=== PATIENT | female | born 1935 | race Caucasian/White ===

== ENCOUNTER 2018-10-06 10:26 | Observation (INO) ==
[2018-10-06] MEDS ORDERED: ASPIRIN 81 MG TAB.CHEW CHEWED ONE (10:31)
[2018-10-06] MEDS ORDERED: methylPREDNISolone SOD SUCC 125 MG/2 ML VIAL IV ONE (10:34)
--- NOTE | 2018-10-06 10:36 | Emergency Department Note ---
SOB HPI - General Chief Complaint: Shortness of Breath/Dyspnea Stated Complaint: SOB, UTI symptoms. Time Seen by Provider: 10/06/18 10:31 Source: patient Mode of arrival: ambulatory Limitations: no limitations - History of Present Illness This patient has a history of COPD and is has some right upper quadrant right lower chest discomfort. Having increasing shortness of breath and wheezing for the last week or 2. Also has a cough productive of white phlegm. - Related Data Home Medications Medication Instructions Recorded Confirmed atorvastatin 20 mg tablet 20 mg PO QDAY 07/31/17 10/06/18 cholecalciferol (vitamin D3) 2,000 5,000 unit PO QDAY cap 07/31/17 10/06/18 unit capsule furosemide 20 mg tablet 20 mg PO QDAY 07/31/17 10/06/18 ipratropium 20 mcg-albuterol 100 1 puff INHALATION .Q4-6H PRN g 07/31/17 10/06/18 mcg/actuation mist for inhalation losartan 50 mg tablet 100 mg PO QDAY 07/31/17 10/06/18 metformin ER 500 mg 500 mg PO QDAY 07/31/17 10/06/18 tablet,extended release 24 hr polysaccharide iron complex 150 mg 150 mg PO BID cap 07/31/17 10/06/18 iron capsule vit C-vit N-[id number]-hes-om-3 1 tab PO QDAY 07/31/17 10/06/18 tramadol 50 mg tablet 25 mg PO Q12H PRN tab 08/21/17 10/06/18 albuterol sulfate HFA 90 2 puff INHALATION Q6H PRN 11/27/17 10/06/18 mcg/actuation aerosol inhaler ranitidine 300 mg tablet 300 mg PO BID tab 06/25/18 10/06/18 Methimazole [Tapazole] 10 mg PO BID 10/06/18 10/06/18 Allergies Allergy/AdvReac Type Severity Reaction Status Date / Time bacitracin Allergy Severe Swelling Verified 02/16/18 09:08 [From Neosporin ([id number])] Neomycin Allergy Severe Swelling Verified 02/16/18 09:08 [From Neosporin ([id number])] polymyxin B Allergy Severe Swelling Verified 02/16/18 09:08 [From Neosporin ([id number])] Procaine [From Novocain] Allergy Severe Swelling Verified 02/16/18 09:08 Review of Systems All systems ED: reviewed and negative except as stated. Past Medical History - Past Medical History [facility] Narrative: Medical History (Last Reviewed 06/25/18 @ 13:44 by GEORGIA Colmenares) History of tobacco abuse (Chronic) Hypoxemia (Chronic) Chronic respiratory failure (Chronic) Hay fever (Chronic) Multiple allergies (Chronic) Osteoporosis (Chronic) Arthritis (Chronic) IBS (irritable bowel syndrome) (Chronic) Hypertension (Chronic) Heart palpitations (Chronic) Shortness of breath (Chronic) Oxygen dependent (Chronic) snf use of drug (Chronic) Chronic neck pain (Chronic) Right knee pain (Chronic) Atopic dermatitis (Chronic) Constipation (Chronic) Vitamin B12 deficiency (Chronic) Polymyalgia rheumatica (Chronic) Anemia of chronic disease (Chronic) Chronic lumbar pain (Chronic) Acute bronchitis (Chronic) Chronic renal disease (Chronic) Pneumonia (Chronic) Chronic obstructive pulmonary disease (Chronic) H/O post-polio syndrome (Chronic) History of hysterectomy (Chronic) Past Surgical History (Last Reviewed 06/25/18 @ 13:44 by GEORGIA Colmenares) History of colonoscopy with polypectomy (Chronic) History of hemorrhoidectomy (Chronic) History of tonsillectomy (Chronic ~1944) Family History (Last Reviewed 06/25/18 @ 13:44 by GEORGIA Colmenares) Mother Stroke Hypertension Arthritis Heart disease Father Stomach cancer Grandmother Stroke Hypertension - Social History smoking status: Former smoker Physical Exam Limitations: no limitations General appearance: alert Head: atraumatic Eye: Present: normal appearance ENT: normal exam Neck: Present: normal inspection Chest: Present: normal inspection Respiratory: Present: wheezes Cardiovascular: Present: regular rate, normal rhythm, normal heart sounds Abdominal: Present: soft, tenderness. Absent: distention, guarding, rebound Abdominal tenderness: Present: RUQ, mild Neurological: Present: alert Psychiatric: Present: normal affect Skin: Present: warm, dry Course Vital Signs Pulse Rate 127 H 10/06/18 10:26 Respiratory Rate 28 H 10/06/18 10:26 Blood Pressure 164/94 10/06/18 10:26 Pulse Oximetry (%) 95 10/06/18 10:26 Pulse Rate 105 H 10/06/18 13:08 Respiratory Rate 22 22/19 13:08 Blood Pressure 110/54 10/06/18 13:08 Pulse Oximetry (%) 96 10/06/18 13:08 Shortness of Breath/Dyspnea - [facility] Narrative Medical decision making narrative: This patient was treated with a DuoNeb twice given Solu-Medrol and Zithromax and still does not feel good enough to go home. Her peak flow was only 65. She will be admitted by Dr. Funk. - Lab Data Lab results reviewed: Yes I reviewed the patient's lab results. Result diagrams: 10/06/18 10:42 10/06/18 10:42 Lab Results 10/06/18 10/06/18 10/06/18 Range/Units 10:42 10:42 10:42 WBC 6.9 (4.5-11.0) K/mcL RBC 4.24 (4.00-5.20) M/mcL Hgb 11.9 L (12.0-15.0) g/dL Hct 36.4 (36.0-48.0) % MCV 85.8 (80.0-100.0) fL MCH 28.1 (26.0-34.0) pg MCHC 32.8 (31.0-36.0) g/dL RDW 13.6 (11.5-14.5) % Plt Count 213 (140-440) K/mcL MPV 9.0 (7.4-10.4) fL Gran % 74.2 (38.0-78.0) % Lymph % (Auto) 13.6 L (15.5-49.0) % [place] % (Auto) 11.3 (1.0-12.0) % Eos % (Auto) 0.8 (0.0-7.0) % Baso % (Auto) 0.1 (0.0-2.0) % Gran # 5.1 (1.8-8.0) K/mcL Lymph # (Auto) 0.9 L (1.5-4.8) K/mcL [place] # (Auto) 0.8 (0.1-0.9) K/mcL Eos # (Auto) 0.1 (0.0-0.7) K/mcL Baso # (Auto) 0 (0.0-0.3) K/mcL VBG Lactic Acid (0.5-2.0) mmol/L Sodium 138 (133-145) mmol/L Potassium 4.6 (3.3-5.1) mmol/L Chloride 100 (96-108) mmol/L Carbon Dioxide 22 (22-30) mmol/L Anion Gap 16.0 (8-16) BUN 23 (8-23) mg/dl Creatinine 1.1 (0.6-1.1) mg/dl GFR Calculation 47 Glucose 149 H (70-105) mg/dL Calcium 9.1 (8.6-10.4) mg/dl Total Bilirubin 0.2 (0.0-1.0) mg/dL AST 22 (0-37) U/l ALT 15 (0-40) U/l Alkaline Phosphatase 81 (39-117) U/L Total Creatine Kinase 53 (24-170) IU/L CK-MB (CK-2) 2.4 (0-2.9) ng/ml Myoglobin 90 H (25-58) ng/ml Troponin T < 0.01 (0-0.03) ng/ml NT-Pro-B Natriuret Pep 316.4 (0-450) pg/ml Total Protein 7.2 (5.9-8.4) gm/dL Albumin 4.2 (3.2-5.2) gm/dL Globulin 3.0 (2.2-3.7) gm/dL Albumin/Globulin Ratio 1.4 (1.0-2.3) 10/06/18 Range/Units 10:43 WBC (4.5-11.0) K/mcL RBC (4.00-5.20) M/mcL Hgb (12.0-15.0) g/dL Hct (36.0-48.0) % MCV (80.0-100.0) fL MCH (26.0-34.0) pg MCHC (31.0-36.0) g/dL RDW (11.5-14.5) % Plt Count (140-440) K/mcL MPV (7.4-10.4) fL Gran % (38.0-78.0) % Lymph % (Auto) (15.5-49.0) % [place] % (Auto) (1.0-12.0) % Eos % (Auto) (0.0-7.0) % Baso % (Auto) (0.0-2.0) % Gran # (1.8-8.0) K/mcL Lymph # (Auto) (1.5-4.8) K/mcL [place] # (Auto) (0.1-0.9) K/mcL Eos # (Auto) (0.0-0.7) K/mcL Baso # (Auto) (0.0-0.3) K/mcL VBG Lactic Acid 2.4 H (0.5-2.0) mmol/L Sodium (133-145) mmol/L Potassium (3.3-5.1) mmol/L Chloride (96-108) mmol/L Carbon Dioxide (22-30) mmol/L Anion Gap (8-16) BUN (8-23) mg/dl Creatinine (0.6-1.1) mg/dl GFR Calculation Glucose (70-105) mg/dL Calcium (8.6-10.4) mg/dl Total Bilirubin (0.0-1.0) mg/dL AST (0-37) U/l ALT (0-40) U/l Alkaline Phosphatase (39-117) U/L Total Creatine Kinase (24-170) IU/L CK-MB (CK-2) (0-2.9) ng/ml Myoglobin (25-58) ng/ml Troponin T (0-0.03) ng/ml NT-Pro-B Natriuret Pep (0-450) pg/ml Total Protein (5.9-8.4) gm/dL Albumin (3.2-5.2) gm/dL Globulin (2.2-3.7) gm/dL Albumin/Globulin Ratio (1.0-2.3) - Radiology Data Radiology results reviewed: Yes I reviewed the patient's radiology results. Disposition Pt seen by EARLY CHILDHOOD WORKER/PA only: No Clinical Impression: Acute exacerbation of chronic obstructive airways disease Disposition: Xfer As Outpt/Obs ([facility]) Condition: Fair Referrals: Kev Chavez MD [Physician] - Time of Disposition: 13:25
[2018-10-06] MEDS ORDERED: IPRATROPIUM/ALBUTEROL 3 ML AMPUL.NEB NEB ONE ×3 (10:41→13:44)
--- NOTE | 2018-10-06 11:20 | XRay Report ---
CLINICAL INFORMATION: COPD cough and chest pain COMPARISON: 04/26/2018 FINDINGS: Heart size, mediastinum and pulmonary vessels are normal. COPD changes noted - no infiltrates or new pulmonary abnormalities. No effusions IMPRESSION: Stable COPD Interpreted and Authenticated by: Javier Gunderson 10/06/18
[2018-10-06 11:25] LABS: Basophils # (Auto) 0 K/mcL (0.0-0.3); Basophils % (Auto) 0.1 % (0.0-2.0); Eosinophils # (Auto) 0.1 K/mcL (0.0-0.7); Eosinophils % (Auto) 0.8 % (0.0-7.0); Granulocytes % (Auto) 74.2 % (38.0-78.0); Hematocrit 36.4 % (36.0-48.0); Hemoglobin 11.9 g/dL (12.0-15.0); Lymphocytes # (Auto) 0.9 K/mcL (1.5-4.8); Lymphocytes % (Auto) 13.6 % (15.5-49.0); Mean Cell Volume 85.8 fL (80.0-100.0); Mean Corpuscular HGB Conc 32.8 g/dL (31.0-36.0); Monocytes # (Auto) 0.8 K/mcL (0.1-0.9); Monocytes % (Auto) 11.3 % (1.0-12.0); Platelet Count 213 K/mcL (140-440); RBC 4.24 M/mcL (4.00-5.20); Red Cell Distribution Width 13.6 % (11.5-14.5); WBC 6.9 K/mcL (4.5-11.0)
[2018-10-06 11:50] LABS: ALT/SGPT 15 U/l (0-40); AST/SGOT 22 U/l (0-37); Albumin 4.2 gm/dL (3.2-5.2); Albumin/Globulin Ratio 1.4 (1.0-2.3); Alkaline Phosphatase 81 U/L (39-117); Bilirubin,Total 0.2 mg/dL (0.0-1.0); Blood Urea Nitrogen 23 mg/dl (8-23); Calcium 9.1 mg/dl (8.6-10.4); Carbon Dioxide 22 mmol/L (22-30); Chloride 100 mmol/L (96-108); Creatine Kinase 53 IU/L (24-170); Creatine Kinase MB 2.4 ng/ml (0-2.9); Glomerular Filtration Rate 47; Glucose 149 mg/dL (70-105); Myoglobin 90 ng/ml (25-58); Potassium 4.6 mmol/L (3.3-5.1); Sodium 138 mmol/L (133-145); proBNP 316.4 pg/ml (0-450)
[2018-10-06] MEDS ORDERED: AZITHROMYCIN 500 MG in DEXTROSE 5% IN WATER 250 ML IV ONE (11:54)
--- NOTE | 2018-10-06 13:43 | Internal Med History&Physical ---
Medical - H&P: HPI Patient information: Note initiated : 10/06/18 at 1:38 pm Service Date, if different from initiated Date: [] Patient: Doris Li a 82 y/o F admitted on for SOB, UTI Symptoms. Chief Complaint: [] History of present illness: Ms. Cristofer Richard is a 82 year old F with history of hypertension presents to the emergency room today for evaluation of cough and shortness of breath. The patient has recently been diagnosed with hyperthyroidism and started on methimazole I believe 2 weeks ago. The patient notes that approximately since then she has noticed that she has progressively been more short of breath, she has had some cough dry sputum and weakness. She also noticed that she has increased tremors fatigue palpitations and jitteriness. She believes that her tremors palpitations could be related to the methimazole. She however also has flareup of her COPD every spring. The patient notes that her shortness of breath has progressively gotten worse, to a point which she is unable to carry out her activities of daily living. She therefore presented to the emergency room. On presentation to the emergency room patient was afebrile tachycardic respiratory rate around 25-35, blood pressure 130 x 51 she is on 95% on 3 L of oxygen. She has COPD with home oxygen use of 2 to 3 L. WBC count is 6.9 hemoglobin 11.9 platelets 213 chemistries unremarkable lactic acid slightly elevated 2.4 chest x-ray is negative for an acute pneumonia. 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) Medical - H&P: PMH Medical history: Medical History (Last Reviewed 06/25/18 @ 13:44 by GEORGIA Colmenares) History of tobacco abuse (Chronic) Hypoxemia (Chronic) Chronic respiratory failure (Chronic) Hay fever (Chronic) Multiple allergies (Chronic) Osteoporosis (Chronic) Arthritis (Chronic) IBS (irritable bowel syndrome) (Chronic) Hypertension (Chronic) Heart palpitations (Chronic) Shortness of breath (Chronic) Oxygen dependent (Chronic) 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) Chronic neck pain (Chronic) Right knee pain (Chronic) Atopic dermatitis (Chronic) Constipation (Chronic) Vitamin B12 deficiency (Chronic) Polymyalgia rheumatica (Chronic) Anemia of chronic disease (Chronic) Chronic lumbar pain (Chronic) Acute bronchitis (Chronic) Chronic renal disease (Chronic) Pneumonia (Chronic) Chronic obstructive pulmonary disease (Chronic) H/O post-polio syndrome (Chronic) History of hysterectomy (Chronic) Surgical history: Past Surgical History (Last Reviewed 06/25/18 @ 13:44 by GEORGIA Colmenares) History of colonoscopy with polypectomy (Chronic) History of hemorrhoidectomy (Chronic) History of tonsillectomy (Chronic ~194) Pertinent family history: Family History (Last Reviewed 06/25/18 @ 13:44 by GEORGIA Colmenares) Mother Stroke Hypertension Arthritis Heart disease Father Stomach cancer Grandmother Stroke Hypertension Medical - H&P: Meds Home Medications Medication Instructions Recorded Confirmed Type atorvastatin 20 mg tablet 20 mg PO QDAY 07/31/17 10/06/18 History cholecalciferol (vitamin D3) 2,000 5,000 unit PO QDAY cap 07/31/17 10/06/18 History unit capsule furosemide 20 mg tablet 20 mg PO QDAY 07/31/17 10/06/18 History ipratropium 20 mcg-albuterol 100 1 puff INHALATION .Q4-6H PRN g 07/31/17 10/06/18 History mcg/actuation mist for inhalation losartan 50 mg tablet 100 mg PO QDAY 07/31/17 10/06/18 History metformin ER 500 mg 500 mg PO QDAY 07/31/17 10/06/18 History tablet,extended release 24 hr polysaccharide iron complex 150 mg 150 mg PO BID cap 07/31/17 10/06/18 History iron capsule vit C-vit B-honkul-jrq-om-3 1 tab PO QDAY 07/31/17 10/06/18 History tramadol 50 mg tablet 25 mg PO Q12H PRN tab 08/21/17 10/06/18 History albuterol sulfate HFA 90 2 puff INHALATION Q6H PRN 11/27/17 10/06/18 History mcg/actuation aerosol inhaler ranitidine 300 mg tablet 300 mg PO BID tab 06/25/18 10/06/18 History Methimazole [Tapazole] 10 mg PO BID 10/06/18 10/06/18 History Allergies Allergy/AdvReac Type Severity Reaction Status Date / Time bacitracin Allergy Severe Swelling Verified 02/16/18 09:08 [From Neosporin ([id number])] Neomycin Allergy Severe Swelling Verified 02/16/18 09:08 [From Neosporin (cli-ylr-nsyix)] polymyxin B Allergy Severe Swelling Verified 02/16/18 09:08 [From Neosporin ([id number])] Procaine [From Novocain] Allergy Severe Swelling Verified 02/16/18 09:08 Medical - H&P: Exam - Constitutional Vitals: Pulse Resp BP Pulse Ox 105 H 22 110/54 96 10/06/18 13:08 10/06/18 13:08 10/06/18 13:08 10/06/18 13:08 Exam: GENERAL: The patient is a well-developed, well-nourished in no apparent distress. Is alert and oriented x3. VITAL SIGNS: Reviewed and as noted elsewhere. HEENT: Head is normocephalic and atraumatic. Extraocular muscles are intact. Pupils are equal, round, and reactive to light. Nares appeared normal. Mouth appears any without lesions. Mucous membranes are moist. NECK: Normal to inspection, Supple, No lymphadenopathy or thyromegaly. LUNGS: Air entry equal on both sides, air entry reduced bilaterally, bilateral expiratory wheezing present bibasilar mild crackles. No accessory muscle use but the patient does appear tachypneic. Patient is able to speak full sentences HEART: Regular tachycardic rate and rhythm normal, S1 and S2 heard, no Gallop, S3 or Rub Noted, No Gross murmur heard. ABDOMEN: Soft, nontender, and nondistended. Positive bowel sounds. No hepatosplenomegaly was noted. EXTREMITIES: No cyanosis, clubbing, rash, lesions or edema. NEUROLOGIC: Cranial nerves II through XII are grossly intact. Motor and Sensory System Grossly Intact PSYCHIATRIC: Normal affect, Normal Mood. Appropriate Behavior. SKIN: No ulceration or wounds noted, No jaundice, No rash noted. Medical - H&P: Reslt - Labs CBC & Chem 7: 10/06/18 10:42 10/06/18 10:42 Labs: Short CBC 10/06/18 Range/Units 10:42 WBC 6.9 (4.5-11.0) K/mcL Hgb 11.9 L (12.0-15.0) g/dL Hct 36.4 (36.0-48.0) % Plt Count 213 (140-440) K/mcL BMP 10/06/18 10:42 Sodium 138 Potassium 4.6 Chloride 100 Carbon Dioxide 22 BUN 23 Creatinine 1.1 Glucose 149 H Calcium 9.1 Cardiac Enzymes 10/06/18 10/06/18 Range/Units 10:42 10:42 Total Creatine Kinase 53 (24-170) IU/L CK-MB (CK-2) 2.4 (0-2.9) ng/ml Troponin T < 0.01 (0-0.03) ng/ml Liver Function 10/06/18 Range/Units 10:42 Total Bilirubin 0.2 (0.0-1.0) mg/dL AST 22 (0-37) U/l ALT 15 (0-40) U/l Alkaline Phosphatase 81 (39-117) U/L Albumin 4.2 (3.2-5.2) gm/dL Medical - H&P: A/P - Narrative A/P Narrative: A/P Acute exacerbation of COPD Hyperthyroidism HYpertensino Hyperlipidemia Chr back pain Allergies Chronic respiratory failure Plan Admit to tele Steroids duo nebs and azithromycin for COPD exacerbation Oxygen supplementation to keep oxygen saturation more than 90 Resume home medications as appropriate Start the patient on atenolol to help counter adrenergic side effects of hyperthyroidism Resume methimazole Check T3-T4 and TSH DVT heparin subcu Cardiac diet Full code, patient notes that her youngest son will make the decision to pull the plug around 48 hours if she remains on a ventilator Social History - Social History occupational status: retired other: Children-6, Grandchildren-15 - Exercise physical activity: none - Tobacco smoking status: Former smoker - Quit Details quit date: 05/18/14 pack-years: 64 - Alcohol alcohol intake frequency: does not drink - Substance use substance use type: does not use - Safety seatbelt use: always
[2018-10-06 14:35] LABS: Appearance,Urine CLEAR; Bacteria,Urine 0 /hpf (0); Bilirubin,Urine NEG (NEG); Color,Urine STRAW; Culture Indicated,Urine NO; Glucose,Urine (UA) NEGATIVE (NEG); Ketones,Urine NEG (NEG); Leukocyte Esterase,Urine NEG /uL (NEG); Mucus,Urine FEW /hpf (0); Nitrate,Urine NEG (NEG); Protein,Urine NEG (NEG); Specific Gravity,Urine 1.006 (1.000-1.035); Urine Blood NEG mg/dL (<0.03); Urine RBC < 1 /hpf (0-1); Urine Squamous Epithelial Cell < 1 /hpf (0-4); Urine WBC < 1 /hpf (0-4); Urobilinogen,Urine NEG (NEG)
[2018-10-06 14:37] LABS: Free T3 3.5 pg/ml (2.0-4.4); Free T4 (Free Thyroxine) 2.45 ng/dl (0.7-1.7); Thyroid Stimulating Hormone 0.01 uIU/ml (0.27-5.01)
[2018-10-06] MEDS ORDERED: NALOXONE HCL 0.4 MG/ML VIAL IV PRN (14:54)
[2018-10-06] MEDS ORDERED: ONDANSETRON 4 MG/2 ML VIAL IV PRN (14:54)
[2018-10-06] MEDS ORDERED: traMADol 50 MG TABLET PO PRN (14:54)
[2018-10-06] MEDS ORDERED: ACETAMINOPHEN 325 MG TABLET PO PRN (14:54)
[2018-10-06] MEDS: IPRATROPIUM/ALBUTEROL 3 ML AMPUL.NEB NEB SCH ×3 (15:23→22:23)
[2018-10-06] MEDS: 0.9 % SODIUM CHLORIDE 10 ML SYRINGE IV SCH ×2 (15:44→20:30)
[2018-10-06] MEDS ORDERED: guaiFENesin/CODEINE 10 ML UDC PO PRN (19:08)
[2018-10-06] MEDS ORDERED: METHIMAZOLE 10 MG TABLET PO SCH (21:00)
[2018-10-06] MEDS ORDERED: HEPARIN 5,000 UNIT/ML VIAL SQ SCH (21:00)
[2018-10-06] MEDS ORDERED: IRON POLYSACCHARIDE COMPLEX 150 MG CAPSULE PO SCH (21:00)
[2018-10-07] MEDS: IPRATROPIUM/ALBUTEROL 3 ML AMPUL.NEB NEB SCH ×6 (03:14→23:17)
[2018-10-07] MEDS: 0.9 % SODIUM CHLORIDE 10 ML SYRINGE IV SCH ×3 (05:29→22:17)
[2018-10-07 05:33] LABS: Basophils # (Auto) 0 K/mcL (0.0-0.3); Basophils % (Auto) 0.3 % (0.0-2.0); Eosinophils # (Auto) 0 K/mcL (0.0-0.7); Eosinophils % (Auto) 0 % (0.0-7.0); Granulocytes % (Auto) 68.1 % (38.0-78.0); Hematocrit 30.6 % (36.0-48.0); Hemoglobin 10.1 g/dL (12.0-15.0); Lymphocytes # (Auto) 0.8 K/mcL (1.5-4.8); Lymphocytes % (Auto) 18.4 % (15.5-49.0); Mean Cell Volume 85.8 fL (80.0-100.0); Mean Corpuscular HGB Conc 32.9 g/dL (31.0-36.0); Mean Platelet Volume 9.1 fL (7.4-10.4); Monocytes # (Auto) 0.6 K/mcL (0.1-0.9); Monocytes % (Auto) 13.2 % (1.0-12.0); Platelet Count 189 K/mcL (140-440); RBC 3.56 M/mcL (4.00-5.20); Red Cell Distribution Width 13.5 % (11.5-14.5); WBC 4.3 K/mcL (4.5-11.0)
[2018-10-07 05:41] LABS: ALT/SGPT 12 U/l (0-40); AST/SGOT 17 U/l (0-37); Albumin 3.5 gm/dL (3.2-5.2); Albumin/Globulin Ratio 1.3 (1.0-2.3); Alkaline Phosphatase 66 U/L (39-117); Bilirubin,Direct < 0.2 mg/dL (0.0-0.3); Bilirubin,Total 0.2 mg/dL (0.0-1.0); Blood Urea Nitrogen 27 mg/dl (8-23); Calcium 8.4 mg/dl (8.6-10.4); Carbon Dioxide 23 mmol/L (22-30); Chloride 100 mmol/L (96-108); Gamma Glutamyl Transpeptidase 19 U/L (5-36); Globulin 2.7 gm/dL (2.2-3.7); Glomerular Filtration Rate 60; Glucose 140 mg/dL (70-105); Lactate Dehydrogenase 202 U/L (94-250); Magnesium 2.4 mg/dL (1.6-2.5); Phosphorous 3.6 mg/dL (2.7-4.5); Potassium 4.6 mmol/L (3.3-5.1); Sodium 134 mmol/L (133-145); Triglycerides 82 mg/dl (<150)
[2018-10-07] MEDS ORDERED: PANTOPRAZOLE 40 MG TABLET PO SCH (07:30)
[2018-10-07] MEDS ORDERED: predniSONE 20 MG TABLET PO SCH (08:00)
--- NOTE | 2018-10-07 08:22 | Internal Med Progress Note ---
Medical - PN: Subj Patient information: Note initiated : 10/07/18 at 8:20 am Service Date, if different from initiated Date: [] Patient: Doris Li a 82 y/o F admitted on 10/06/18 for SOB, UTI Symptoms. Chief Complaint: [] Interval history: Ms. Cristofer Richard is a 82 year old F with history of hypertension presents to the emergency room today for evaluation of cough and shortness of breath. The patient has recently been diagnosed with hyperthyroidism and started on methimazole I believe 2 weeks ago. The patient notes that approximately since then she has noticed that she has progressively been more short of breath, she has had some cough dry sputum and weakness. She also noticed that she has i ncreased tremors fatigue palpitations and jitteriness. She believes that her tremors palpitations could be related to the methimazole. She however also has flareup of her COPD every spring. The patient notes that her shortness of breath has progressively gotten worse, to a point which she is unable to carry out her activities of daily living. She therefore presented to the emergency room. On presentation to the emergency room patient was afebrile tachycardic respiratory rate around 25-35, blood pressure 130 x 51 she is on 95% on 3 L of oxygen. She has COPD with home oxygen use of 2 to 3 L. WBC count is 6.9 hemoglobin 11.9 platelets 213 chemistries unremarkable lactic acid slightly elevated 2.4 chest x-ray is negative for an acute pneumonia. Patient received steroids and duo nebs in the ED however remained tachycardic and tachypneic and therefore is being admitted to the hospital for further management 10/07 Patient seen examined, much improved from yesterday sob improved but still not at baseline feels sob with activity labs stable viral panel positive for metapneumovirus. Pertinent ROS: Denies headache, dizziness Denies chest pain, palpitations improving cough and shortness of breath. Denies abdominal pain, nausea or vomiting. - Constitutional Vitals: Vital Signs Temp Pulse Resp BP Pulse Ox 98.6 F 101 H 26 H 154/64 100 10/07/18 08:00 10/07/18 07:27 10/07/18 08:00 10/07/18 08:00 10/07/18 08:00 Period Temp Pulse Resp BP Sys/Waterman Pulse Ox Last 24 Hr 97.1 F-98.6 F 94-130 16-35 110-167/51-94 95-100 Intake and Output 10/06/18 10/07/18 10/07/18 21:59 05:59 13:59 Intake Total 360 360 Output Total 400 250 Balance -40 110 Weight 136 lb 8 oz Intake & Output: Intake & Output 10/06/18 10/07/18 10/07/18 21:59 05:59 13:59 Intake Total 360 360 Output Total 400 250 Balance -40 110 Weight 136 lb 8 oz Intake: Oral 360 360 Output: Void Amount 400 250 Other: Meal Lunch Percent of Meal Consumed 75% Feeding Ability Assist with Tray Set Up Urine Appearance Clear Urine Color Bright Yellow Exam: Constitutional; Afebrile, cooperative, alert, not in distress. Respiratory system: Air Entry equal on both sides, mild exp wheeze, much improved from yesterday. CVS- Rate rhythm regular, S1,S2 heard, no gallop, no rub. 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 Medical - PN: Obj Da - Labs CBC & Chem 7: 10/07/18 03:40 10/07/18 03:40 Labs: Abnormal Lab Results 10/07/18 10/07/18 10/06/18 03:40 03:40 10:43 WBC 4.3 L RBC 3.56 L Hgb 10.1 L Hct 30.6 L Lymph % (Auto) [place] % (Auto) 13.2 H Lymph # (Auto) 0.8 L VBG Lactic Acid 2.4 H BUN 27 H Glucose 140 H Calcium 8.4 L Myoglobin TSH Free T4 10/06/18 10/06/18 10/06/18 10:42 10:42 10:42 WBC RBC Hgb 11.9 L Hct Lymph % (Auto) 13.6 L [place] % (Auto) Lymph # (Auto) 0.9 L VBG Lactic Acid BUN Glucose 149 H Calcium Myoglobin 90 H TSH 0.01 L Free T4 2.45 H Meds: Medications Acetaminophen (Tylenol) 650 mg PO Q6HP PRN PRN Reason: PAIN/FEVER > 101 Albuterol/Ipratropium (Duoneb) 3 ml NEB Q4HRT [facility] Last Admin: 10/07/18 07:27 Dose: 3 ml Documented by: Atenolol (Tenormin) 25 mg PO DAILY [facility] Atorvastatin Calcium (Lipitor) 20 mg PO QDAY [facility] Azithromycin (Zithromax) 250 mg PO DAILY [facility]; Protocol Stop: 10/10/18 09:01 Furosemide (Lasix) 20 mg PO QDAY [facility] Guaifenesin/Codeine Phosphate (Robitussin Ac) 5 ml PO Q4HP PRN PRN Reason: Cough Last Admin: 10/06/18 20:28 Dose: 5 ml Documented by: Heparin Sodium (Porcine) (Heparin) 5,000 unit SQ Q12 [facility] Last Admin: 10/06/18 20:28 Dose: 5,000 unit Documented by: Losartan Potassium (Cozaar) 100 mg PO QDAY [facility] Methimazole (Methimazole) 10 mg PO BID [facility] Last Admin: 10/06/18 20:30 Dose: Not Given Documented by: Naloxone HCl (Narcan) 0.1 mg IV Q2MIN PRN PRN Reason: Opiate Reversal Ondansetron HCl (Zofran) 4 mg IV Q4HP PRN PRN Reason: Nausea And Vomiting [facility]opraz[facility] Last Admin: 10/07/18 07:54 Dose: 40 mg Documented by: Polysaccharide Iron Complex (Ferrex 150) 150 mg PO BID [facility] Last Admin: 10/06/18 20:29 Dose: 150 mg Documented by: Prednisone (Prednisone) 40 mg PO [facility] Last Admin: 10/07/18 07:54 Dose: 40 mg Documented by: Sodium Chloride (Saline Flush) 10 ml IV Q8 [facility] Last Admin: 10/07/18 05:29 Dose: 10 ml Documented by: Tramadol HCl (Ultram) 25 mg PO Q12HP PRN PRN Reason: Pain Last Admin: 10/06/18 20:28 Dose: 25 mg Documented by: Medical - PN: A/P - Time Spent With Patient Total time spent is greater than 50% in coordination of care (as documented) at patient's floor/unit and/or counseling patient: - Narrative A/P Narrative: A/P Acute exacerbation of COPD Hyperthyroidism HYpertensino Hyperlipidemia Chr back pain Allergies Chronic respiratory failure Plan xfer to med surg Steroids duo nebs and azithromycin for COPD exacerbation, pt clinically improving. Oxygen supplementation to keep oxygen saturation more than 90, she is presently on 2 L oxygen Resume home medications as appropriate Start the patient on atenolol to help counter adrenergic side effects of hyperthyroidism Resume methimazole at home dose, further titration as outpatient. T4 is elevated and TSH is 0.05. DVT heparin subcu Cardiac diet Full code, patient notes that her youngest son will make the decision to pull the plug around 48 hours if she remains on a ventilator
[2018-10-07] MEDS ORDERED: NALOXONE HCL 0.4 MG/ML VIAL IV PRN (08:25)
[2018-10-07] MEDS ORDERED: traMADol 50 MG TABLET PO PRN (08:25)
[2018-10-07] MEDS ORDERED: ACETAMINOPHEN 325 MG TABLET PO PRN (08:25)
[2018-10-07] MEDS ORDERED: guaiFENesin/CODEINE 10 ML UDC PO PRN (08:25)
[2018-10-07] MEDS ORDERED: ONDANSETRON 4 MG/2 ML VIAL IV PRN (08:25)
[2018-10-07] MEDS ORDERED: ATENOLOL 50 MG TABLET PO SCH (09:00)
[2018-10-07] MEDS ORDERED: ATORVASTATIN 20 MG TABLET PO SCH ×2 (09:00→21:00)
[2018-10-07] MEDS ORDERED: AZITHROMYCIN 250 MG TABLET PO SCH (09:00)
[2018-10-07] MEDS ORDERED: FUROSEMIDE 20 MG TABLET PO SCH (09:00)
[2018-10-07] MEDS ORDERED: LOSARTAN 50 MG TABLET PO SCH (09:00)
[2018-10-07] MEDS: ATENOLOL 50 MG TABLET PO SCH (09:14)
[2018-10-07] MEDS: AZITHROMYCIN 250 MG TABLET PO SCH (09:14)
[2018-10-07] MEDS: LOSARTAN 50 MG TABLET PO SCH (09:14)
[2018-10-07] MEDS: IRON POLYSACCHARIDE COMPLEX 150 MG CAPSULE PO SCH ×2 (09:14→20:36)
[2018-10-07] MEDS: METHIMAZOLE 10 MG TABLET PO SCH ×2 (09:15→20:37)
[2018-10-07] MEDS: FUROSEMIDE 20 MG TABLET PO SCH (09:15)
[2018-10-07] MEDS: HEPARIN 5,000 UNIT/ML VIAL SQ SCH ×2 (09:15→20:36)
[2018-10-08] MEDS: IPRATROPIUM/ALBUTEROL 3 ML AMPUL.NEB NEB SCH ×3 (03:28→11:02)
[2018-10-08 06:32] LABS: Basophils # (Auto) 0 K/mcL (0.0-0.3); Basophils % (Auto) 0.1 % (0.0-2.0); Eosinophils # (Auto) 0 K/mcL (0.0-0.7); Eosinophils % (Auto) 0.2 % (0.0-7.0); Granulocytes % (Auto) 60.7 % (38.0-78.0); Hematocrit 29.4 % (36.0-48.0); Hemoglobin 9.6 g/dL (12.0-15.0); Lymphocytes % (Auto) 28.1 % (15.5-49.0); Mean Cell Volume 85.4 fL (80.0-100.0); Mean Corpuscular HGB Conc 32.7 g/dL (31.0-36.0); Mean Platelet Volume 9.5 fL (7.4-10.4); Monocytes # (Auto) 0.8 K/mcL (0.1-0.9); Monocytes % (Auto) 10.9 % (1.0-12.0); Platelet Count 187 K/mcL (140-440); RBC 3.45 M/mcL (4.00-5.20); Red Cell Distribution Width 13.4 % (11.5-14.5)
[2018-10-08] MEDS: 0.9 % SODIUM CHLORIDE 10 ML SYRINGE IV SCH ×2 (07:11→14:29)
[2018-10-08 07:13] LABS: ALT/SGPT 11 U/l (0-40); AST/SGOT 16 U/l (0-37); Albumin 3.4 gm/dL (3.2-5.2); Albumin/Globulin Ratio 1.4 (1.0-2.3); Alkaline Phosphatase 60 U/L (39-117); Bilirubin,Direct < 0.2 mg/dL (0.0-0.3); Bilirubin,Total 0.2 mg/dL (0.0-1.0); Blood Urea Nitrogen 33 mg/dl (8-23); Calcium 8.6 mg/dl (8.6-10.4); Carbon Dioxide 23 mmol/L (22-30); Chloride 103 mmol/L (96-108); Gamma Glutamyl Transpeptidase 20 U/L (5-36); Globulin 2.4 gm/dL (2.2-3.7); Glomerular Filtration Rate 47; Glucose 94 mg/dL (70-105); Lactate Dehydrogenase 200 U/L (94-250); Magnesium 2.5 mg/dL (1.6-2.5); Phosphorous 3.6 mg/dL (2.7-4.5); Potassium 4.1 mmol/L (3.3-5.1); Sodium 138 mmol/L (133-145); Triglycerides 142 mg/dl (<150)
[2018-10-08] MEDS ORDERED: PANTOPRAZOLE 40 MG TABLET PO SCH (07:30)
[2018-10-08] MEDS ORDERED: predniSONE 20 MG TABLET PO SCH (08:00)
[2018-10-08] MEDS: METHIMAZOLE 10 MG TABLET PO SCH (10:11)
[2018-10-08] MEDS: IRON POLYSACCHARIDE COMPLEX 150 MG CAPSULE PO SCH (10:11)
[2018-10-08] MEDS: FUROSEMIDE 20 MG TABLET PO SCH (10:11)
[2018-10-08] MEDS: AZITHROMYCIN 250 MG TABLET PO SCH (10:11)
[2018-10-08] MEDS: HEPARIN 5,000 UNIT/ML VIAL SQ SCH (10:14)
[2018-10-08] MEDS: ATENOLOL 50 MG TABLET PO SCH (12:10)
[2018-10-08] MEDS: LOSARTAN 50 MG TABLET PO SCH (12:10)
--- NOTE | 2018-10-08 13:12 | Discharge Summary ---
Medical - DS: Prov Patient information: Note initiated : 10/08/18 at 1:09 pm Service Date, if different from initiated Date: [] Patient: Doris Li 82 y/o F admitted on 10/06/18 for SOB, UTI Symptoms. Chief Complaint: [] Date of admission: 10/06/18 14:38 Discharge date: 10/08/18 Primary care physician: GEORGIA Martinez Consults: 10/06/18 Consult to Physician [CONS] Stat Comment: Consulting Provider: Yanci Funk Reason For Exam: Physician to Consult Medical - DS: Meds - Discharge Medications Prescriptions: Atenolol [Tenormin] 25 mg PO DAILY #30 tab Azithromycin [Zithromax] 250 mg PO DAILY #3 tab predniSONE [Prednisone] 40 [facility] [place] Active and Home Medications: Home Medications atorvastatin 20 mg tablet 20 mg PO QDAY 07/31/17 [History Confirmed 10/06/18 Last Taken Unknown] cholecalciferol (vitamin D3) 2,000 unit capsule 5,000 unit PO QDAY cap 07/31/17 [History Confirmed 10/06/18 Last Taken Unknown] furosemide 20 mg tablet 20 mg PO QDAY 07/31/17 [History Confirmed 10/06/18 Last Taken Unknown] ipratropium 20 mcg-albuterol 100 mcg/actuation mist for inhalation 1 puff INHALATION .Q4-6H PRN g 07/31/17 [History Confirmed 10/06/18 Last Taken Unknown] losartan 50 mg tablet 100 mg PO QDAY 07/31/17 [History Confirmed 10/06/18 Last Taken Unknown] metformin ER 500 mg tablet,extended release 24 hr 500 mg PO QDAY 07/31/17 [History Confirmed 10/06/18 Last Taken Unknown] polysaccharide iron complex 150 mg iron capsule 150 mg PO BID cap 07/31/17 [History Confirmed 10/06/18 Last Taken Unknown] vit C-vit [id number] 1 tab PO QDAY 07/31/17 [History Confirmed 10/06/18 Last Taken Unknown] tramadol 50 mg tablet 25 mg PO Q12H PRN tab 08/21/17 [History Confirmed 10/06/18 Last Taken Unknown] albuterol sulfate HFA 90 mcg/actuation aerosol inhaler 2 puff INHALATION Q6H PRN 11/27/17 [History Confirmed 10/06/18 Last Taken Unknown] ranitidine 300 mg tablet 300 mg PO BID tab 06/25/18 [History Confirmed 10/06/18 Last Taken Unknown] Methimazole [Tapazole] 10 mg PO BID 10/06/18 [History Confirmed 10/06/18 Last Taken Unknown] Atenolol [Tenormin] 25 mg PO DAILY #30 tab 10/08/18 [Rx Last Taken Unknown] Azithromycin [Zithromax] 250 mg PO DAILY #3 tab 10/08/18 [Rx Last Taken Unknown] predniSONE [Prednisone] 40 mg PO [facility] #10 tab 10/08/18 [Rx Last Taken Unknown] Medical - DS: Hosp Hospital course: Discharge diagnosis * Acute exacerbation of COPD clinically improved with management per guidelines on bronchodilators and steroids. Likely flare secondary to human metapneumovirus URI * Hypoxic respiratory failure secondary to above continue home oxygen/bronchodilators * History of hypertension continue medications, started on atenolol to counter adrenergic side effects of hyperthyroidism * Hypothyroidism-continue methimazole, follow PCP as outpatient Brief hospital course Ms. Cristofer Richard is a 82 year old F with history of hypertension presents to the emergency room today for evaluation of cough and shortness of breath. The patient has recently been diagnosed with hyperthyroidism and started on methimazole I believe 2 weeks ago. The patient notes that approximately since then she has noticed that she has progressively been more short of breath, she has had some cough dry sputum and weakness. She also noticed that she has increased tremors fatigue palpitations and jitteriness. She believes that her tremors palpitations could be related to the methimazole. She however also has flareup of her COPD every spring. The patient notes that her shortness of breath has progressively gotten worse, to a point which she is unable to carry out her activities of daily living. She therefore presented to the emergency room. On presentation to the emergency room patient was afebrile tachycardic respiratory rate around 25-35, blood pressure 130 x 51 she is on 95% on 3 L of oxygen. She has COPD with home oxygen use of 2 to 3 L. WBC count is 6.9 hemoglobin 11.9 platelets 213 chemistries unremarkable lactic acid slightly elevated 2.4 chest x-ray is negative for an acute pneumonia. Patient received steroids and duo nebs in the ED however remained tachycardic and tachypneic and therefore is being admitted to the hospital for further management 10/07 Patient seen examined, much improved from yesterday sob improved but still not at baseline feels sob with activity labs stable viral panel positive for metapneumovirus. 10/08- patient doing well. Feels close to baseline. Discharging on home oxygen/azithromycin in 5 days of steroids. Would require outpatient follow-up with PCP. Started on atenolol for countering adrenergic effects of hyperthyroidism. Currently on methimazole. Will follow up with PCP for continued management of hyperthyroidism. Discharges instructions and medications as below Discharge diagnosis: . - Time Spent with Patient Total time spent providing and/or coordinating discharge services: Greater than 30 minutes Medical - DS: Exam - Constitutional Vitals: Vital Signs Temp Pulse Pulse Resp BP Pulse Ox 10/08/18 11:39 74 17 138/50 96 10/08/18 11:02 82 16 10/08/18 10:12 120/52 10/08/18 07:39 98.1 F 20 105/59 93 10/08/18 07:23 76 20 95 10/08/18 03:25 98.5 F 71 20 123/56 95 10/07/18 23:18 76 22 10/07/18 23:10 98.3 F 84 24 H 148/63 92 10/07/18 20:15 98.9 F 80 24 H 137/61 95 10/07/18 15:58 98.1 F 76 22 115/52 96 10/07/18 15:09 70 22 96 10/07/18 15:05 70 22 Intake and Output 10/07/18 10/08/18 10/08/18 21:59 05:59 13:59 Intake Total 720 500 Output Total 200 1 Balance 520 499 Intake: Oral 720 500 Output: Void Amount 200 # of times incontinent of urine 1 Other: Meal Dinner Percent of Meal Consumed 100% Urine Appearance Clear Urine Color Straw Urine Odor Normal # Voids 1 1 1 Weight 138 lb Medical - DS: Data Labs on day of discharge: Labs from last 24 hours 10/08/18 10/08/18 04:32 04:32 WBC 7.0 RBC 3.45 L Hgb 9.6 L Hct 29.4 L MCV 85.4 MCH 28.0 MCHC 32.7 RDW 13.4 Plt Count 187 MPV 9.5 Gran % 60.7 Lymph % (Auto) 28.1 [place] % (Auto) 10.9 Eos % (Auto) 0.2 Baso % (Auto) 0.1 Gran # 4.2 Lymph # (Auto) 2.0 [place] # (Auto) 0.8 Eos # (Auto) 0 Baso # (Auto) 0 Sodium 138 Potassium 4.1 Chloride 103 Carbon Dioxide 23 Anion Gap 12.0 BUN 33 H Creatinine 1.1 GFR Calculation 47 Glucose 94 Uric Acid 7.0 Calcium 8.6 Phosphorus 3.6 Magnesium 2.5 Total Bilirubin 0.2 Direct Bilirubin < 0.2 GGT 20 AST 16 ALT 11 Alkaline Phosphatase 60 Lactate Dehydrogenase 200 Total Protein 5.8 L Albumin 3.4 Globulin 2.4 Albumin/Globulin Ratio 1.4 Triglycerides 142 Medical - DS: A/P - Patient/Caregiver Discharge Instructions Activity: increase activity as tolerated, wear oxygen at all times Diet: Regular Diet Additional Instructions: Follow-up PCP in 5 days Continue azithromycin for additional 3 days continue prednisone for 5 days Continue atenolol to help counter adrenergic side effects of hyperthyroidism Continue methimazole at home dose, further titration as outpatient. T4 is elevated and TSH is 0.05. I recommend primary care physician to check TSH, CBC BMP UA as a posthospital follow-up and Chest x-ray in 1 week. oxygen @prior home level to keep sats 88% Recommend pulmonary function test as outpatient in 3 weeks Continue aggressive bowel regimen to prevent constipation Continue fall precautions All meals on chair sitting upright at 90 degrees to prevent aspiration Return to ER if worsening fever chills shortness of breath, diarrhea, bleeding Review risk and side effect profile of medications including antibiotics. Side effect may include mild to severe reaction including rash, diarrhea, cdiff and even which can be prevented by close follow-up with PCP and monitoring for side effects Refrain from smoking and alcohol Continue diet and activity as advised Discussed importance of medication adherence Please review medication list with patient prior to discharge Please schedule follow-up with PCP/Providers prior to discharge and provide printouts Prescriptions: Atenolol [Tenormin] 25 mg PO DAILY #30 tab Azithromycin [Zithromax] 250 mg PO DAILY #3 tab predniSONE [Prednisone] 40 mg PO [facility] #10 tab - Follow up Plan Follow up with: Kev Chavez MD [Physician] - Disposition: Home Health Service Prognosis: Fair Rehab Potential: Fair I certify that the patient requires SNF services: No Overall status at discharge: patient is progressing back to baseline
== END 2018-10-08 14:48 | disposition home health service (06) ==
LOC: ED 10:26 → ICU 10:26 → MEDSUR 10-07 18:05
PROVIDERS: ADMIT Internal Medicine; ATTEND Internal Medicine

== ENCOUNTER 2020-09-30 08:39 | Inpatient (IN) ==
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
[2020-09-30] MEDS ORDERED: LACTATED RINGERS 1,000 ML IV ONE (09:34)
[2020-09-30] MEDS ORDERED: NALOXONE HCL 0.4 MG/ML VIAL IV ONE (09:34)
--- NOTE | 2020-09-30 10:08 | XRay Report ---
HISTORY: COPD, pneumonia decreased level of consciousness FINDINGS: there is a small peripheral infiltrate above the right costophrenic sulcus. Patient has underlying moderately severe emphysema with pulmonary fibrosis, better seen on the prior chest CT done on 11/12/18. No pleural effusion is present. The heart size is normal. The mediastinum and jackie are normal. IMPRESSION: Mild right lower lobe pneumonia superimposed upon underlying emphysema Interpreted and Authenticated by: Jc Geronimo 09/30/20
[2020-09-30] MEDS ORDERED: cefTRIAXone 2 GM in DEXTROSE 5% IN WATER 50 ML IV ONE (10:35)
[2020-09-30 10:52] LABS: Basophils # (Auto) 0.05 K/mcL (0.00-0.20); Basophils % (Auto) 0.5 % (0.0-2.0); Eosinophils # (Auto) 0.03 K/mcL (0.00-0.70); Eosinophils % (Auto) 0.3 % (0.0-7.0); Hematocrit 33.5 % (36.0-48.0); Hemoglobin 10.7 g/dL (12.0-15.0); Lymphocytes # (Auto) 0.59 K/mcL (1.50-4.80); Lymphocytes % (Auto) 6.2 % (15.0-49.0); Mean Cell Volume 90.8 fL (80.0-100.0); Mean Corpuscular HGB Conc 31.9 g/dL (31.0-36.0); Mean Platelet Volume 10.9 fL (7.4-10.4); Monocytes # (Auto) 0.81 K/mcL (0.10-0.90); Monocytes % (Auto) 8.5 % (1.0-12.0); Neutrophils % (Auto) 84.5 % (38.0-78.0); Platelet Count 277 K/mcL (140-440); RBC 3.69 M/mcL (4.00-5.20); Red Cell Distribution Width 13.3 % (11.5-14.5); WBC 9.5 K/mcL (4.5-11.0)
[2020-09-30 11:02] LABS: ALT/SGPT 10 U/L (<40); AST/SGOT 19 U/L (<32); Albumin 3.3 gm/dL (3.2-5.2); Albumin/Globulin Ratio 0.9 (1.0-2.3); Alkaline Phosphatase 64 U/L (39-117); Bilirubin,Total 0.3 mg/dL (0.1-1.0); Blood Urea Nitrogen 60 mg/dL (8-23); Calcium 9.4 mg/dL (8.6-10.4); Carbon Dioxide 32 mmol/L (22-30); Chloride 96 mmol/L (96-108); Globulin 3.5 gm/dL (2.2-3.7); Glomerular Filtration Rate 27; Glucose 137 mg/dL (70-105)
[2020-09-30 11:18] LABS: ABG Methemoglobin 0.3 % (0.4-1.5); Total Hemoglobin 10.3 gm/Dl (13.5-16.5); VBG Base Excess 8 (-2-3); VBG HCO3 30.8 mmol/L; VBG Oxygen Saturation 95.6 %; VBG PCO2 37.5 mmHg; VBG PH 7.53 U; VBG PO2 169.7 mmHg; VBG Total CO2 31.9 mmol/L
[2020-09-30 11:31] LABS: Appearance,Urine CLOUDY (Clear); Bacteria,Urine FEW /hpf (0); Bilirubin,Urine Negative (Negative); Color,Urine YELLOW; Culture Indicated,Urine yes; Glucose,Urine (UA) Negative (Negative); Ketones,Urine Negative (Negative); Leukocyte Esterase,Urine 500 /ug (Negative); Mucus,Urine FEW /hpf; Nitrate,Urine POS (Negative); Protein,Urine 30 mg/dL (Negative); Specific Gravity,Urine 1.015 (1.000-1.035); Urine Blood >=1.0 mg/dL (Negative); Urine Hyaline Cast 3 /lph (0-2); Urine RBC 158 /hpf (0-3); Urine Squamous Epithelial Cell 1 /hpf (0-4); Urine Transitional Epi Cells < 1 /hpf (0-2); Urine WBC 122 /hpf (0-4); Urobilinogen,Urine Negative
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
[2020-09-30] MEDS ORDERED: POLYETHYLENE GLYCOL 3350 17 GM PACKET PO PRN (14:24)
[2020-09-30] MEDS ORDERED: MAGNESIUM SULFATE 2 GM/50 ML BAG IV PRN (14:24)
[2020-09-30] MEDS ORDERED: 0.9 % SODIUM CHLORIDE 1,000 ML IV SCH (14:24)
[2020-09-30] MEDS ORDERED: LACTULOSE 20 GM/30 ML ORAL.SOL PO PRN (14:24)
[2020-09-30] MEDS ORDERED: AZITHROMYCIN 500 MG in DEXTROSE 5% IN WATER 250 ML IV SCH (14:24)
[2020-09-30] MEDS ORDERED: cefTRIAXone 2 GM in DEXTROSE 5% IN WATER 50 ML IV SCH (14:24)
[2020-09-30] MEDS ORDERED: DEXTROSE 31 GM ORAL.SUSP PO PRN (14:24)
[2020-09-30] MEDS ORDERED: IPRATROPIUM/ALBUTEROL 3 ML AMPUL.NEB NEB PRN (14:24)
[2020-09-30] MEDS ORDERED: POTASSIUM CHLORIDE 20 MEQ TABLET PO PRN ×2 (14:24)
[2020-09-30] MEDS ORDERED: DEXTROSE 50% 50 ML VIAL IV PRN (14:24)
[2020-09-30] MEDS ORDERED: POTASSIUM CHLORIDE 40 MEQ in DEXTROSE 5% IN WATER 500 ML IV PRN (14:24)
[2020-09-30] MEDS ORDERED: ONDANSETRON 4 MG/2 ML VIAL IV PRN (14:24)
[2020-09-30] MEDS ORDERED: SENNOSIDES 1 TABLET PO PRN (14:24)
[2020-09-30] MEDS: 0.9 % SODIUM CHLORIDE 10 ML SYRINGE IV SCH ×2 (14:29→21:03)
[2020-09-30] MEDS: AZITHROMYCIN 500 MG in DEXTROSE 5% IN WATER 250 ML IV SCH (15:05)
[2020-09-30] MEDS ORDERED: HYDROcodone/APAP 5/325MG TABLET PO PRN (16:28)
[2020-09-30] MEDS: ACETAMINOPHEN 325 MG TABLET PO PRN (17:11)
[2020-09-30] MEDS: INSULIN LISPRO 1 UNIT/0.01 ML UNIT SQ SCH ×2 (17:12→21:03)
[2020-09-30] MEDS: DOCUSATE SODIUM 100 MG CAPSULE PO SCH (21:03)
[2020-09-30] MEDS: traMADol 50 MG TABLET PO PRN (23:55)
[2020-10-01] MEDS: 0.9 % SODIUM CHLORIDE 10 ML SYRINGE IV SCH ×3 (05:13→21:12)
[2020-10-01 07:00] LABS: Basophils # (Auto) 0.04 K/mcL (0.00-0.20); Basophils % (Auto) 0.4 % (0.0-2.0); Eosinophils # (Auto) 0.39 K/mcL (0.00-0.70); Eosinophils % (Auto) 3.9 % (0.0-7.0); Hematocrit 27.6 % (36.0-48.0); Hemoglobin 8.9 g/dL (12.0-15.0); Lymphocytes # (Auto) 0.99 K/mcL (1.50-4.80); Mean Corpuscular HGB Conc 32.2 g/dL (31.0-36.0); Mean Platelet Volume 10.8 fL (7.4-10.4); Monocytes # (Auto) 0.84 K/mcL (0.10-0.90); Monocytes % (Auto) 8.5 % (1.0-12.0); Neutrophils % (Auto) 77.2 % (38.0-78.0); Platelet Count 231 K/mcL (140-440); Red Cell Distribution Width 13.1 % (11.5-14.5); WBC 9.9 K/mcL (4.5-11.0)
[2020-10-01] MEDS: INSULIN LISPRO 1 UNIT/0.01 ML UNIT SQ SCH ×4 (07:00→21:12)
[2020-10-01 07:18] LABS: ALT/SGPT 15 U/L (<40); AST/SGOT 28 U/L (<32); Albumin 2.8 gm/dL (3.2-5.2); Alkaline Phosphatase 62 U/L (39-117); Bilirubin,Direct < 0.2 mg/dL (0-0.3); Bilirubin,Total 0.3 mg/dL (0.1-1.0); Blood Urea Nitrogen 48 mg/dL (8-23); Calcium 8.5 mg/dL (8.6-10.4); Carbon Dioxide 30 mmol/L (22-30); Chloride 97 mmol/L (96-108); Globulin 2.8 gm/dL (2.2-3.7); Glomerular Filtration Rate 38; Glucose 96 mg/dL (70-105); Lactate Dehydrogenase 281 U/L (135-225); Phosphorous 3.1 mg/dL (2.5-4.5); Triglycerides 146 mg/dL (<150); Uric Acid 12.6 mg/dL (2.5-8.0)
[2020-10-01 07:50] LABS: Estimated Average Glucose(eAG) 114 mg/dL; Hemoglobin A1C 5.6 % Hgb (4.0-6.0)
[2020-10-01] MEDS ORDERED: 0.9 % SODIUM CHLORIDE 1,000 ML IV SCH (08:00)
--- NOTE | 2020-10-01 08:01 | Internal Med Progress Note ---
SUBJECTIVE Subjective Patient information: Note initiated : 10/01/20 at 7:57 am Service Date, if different from initiated Date: [] Patient: Doris Li a 84 y/o F admitted on 09/30/20 for hospice patient, possible PNA, less responsive. Chief Complaint: [] Interval history: History of present illness: Ms. Cristofer Richard is a 84 year old F Presents the ED per request of the hospice nurse for suspected oversedation from narcotics. Of note patient was admitted to [facility] in the month for several days after a fall. Patient gets oral morphine on occasion. He is also recently started on Linton catheter after the fall. In the ED she responded quite well to Narcan. She did receive a chest x-ray which showed an infiltrate in right lower lobe and a urinalysis consistent with infection. She was started on IV antibiotics. Family rescinded hospice so she could be admitted. She is also found to have a fever in the ED. Patient is feeling better after the Narcan. She does report a history of either food or drink occasionally going down the wrong pipe. And cough being triggered by food or drink at times. She does have a chronic cough and feels cough is little bit worse the past couple days. Denies chest pain. She is on methimazole 10 mg daily for hyperthyroidism. She had labs done several days ago which showed elevated TSH and low T4. We will lower her methimazole 50%. She is also found to have a likely acute kidney injury on chronic kidney disease. 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 10/01 Patient feeling a little better. Renal function improved. Occasional cough. Unable to bring up phlegm from her throat. Review of Systems: denies headache/fever/chills/nausea/vomiting/chest or abdominal pain/diarrhea. Otherwise see above. Constitutional Vitals: Vital Signs Temp Pulse Resp BP Pulse Ox 97.5 F 70 18 121/60 94 10/01/20 06:53 10/01/20 06:53 10/01/20 06:53 10/01/20 06:53 10/01/20 06:53 Period Temp Pulse Resp BP Sys/Waterman Pulse Ox Last 24 Hr 97.5 F-101.2 F 70-116 14-20 113-173/56-97 88-98 Intake and Output 09/30/20 10/01/20 10/01/20 21:59 05:59 13:59 Intake Total 1300 1240 Output Total 350 500 Balance 950 740 Weight 62.397 kg Intake & Output: Intake & Output 09/30/20 10/01/20 10/01/20 21:59 05:59 13:59 Intake Total 1300 1240 Output Total 350 500 Balance 950 740 Weight 62.397 kg Intake: IV 1300 1000 Sodium Chloride 0.9% 1,000 ml @ 1000 75 mls/hr IV .[id number] [facility] Rx#: [id number] Zithromax 500 mg In Dextrose 5% 250 in Water 250 ml @ 250 mls/hr IV DAILY@1100 [place] Rx#:[id number] Lactated Ringers 1,000 ml @ 1000 Wide Open IV .Q0M ONE Rx#: [id number] Rocephin 2 gm In Dextrose 5% in 50 Water 50 ml @ 100 mls/hr IV ONCE ONE Rx#:[id number] Oral 0 240 Output: Urine Catheter Amount 350 500 Other: Meal Dinner Percent of Meal Consumed 25% Feeding Ability Assist with Tray Set Up Urine Appearance Sediment Purulent Uretheral (Linton) Cloudy Purulent Urine Color Bright Yellow Uretheral (Linton) Bright Yellow Urine Odor Foul Exam: General: Alert, Awake, No acute Distress Eyes/N/T: EOMI, Head/Neck: neck supple, CV: RRR, No murmurs, Pulm: Diminished right base and b/l rhonchi, no wheezing Abd: soft, nontender, +BS x4 Ext: no clubbing/cyanosis/edema Neuro: Alert, no focal deficits, moves all extremities, Skin: warm/dry OBJ DATA Labs CBC & Chem 7: 10/01/20 05:22 10/01/20 05:22 Labs: Abnormal Lab Results 10/01/20 10/01/20 10/01/20 05:22 05:22 05:22 RBC 3.10 L Hgb 8.9 L Hct 27.6 L MPV 10.8 H Neut % (Auto) Lymph % (Auto) 10.0 L Lymph # (Auto) 0.99 L ABG Methemoglobin VBG Base Excess Carboxyhemoglobin Total Hemoglobin Carbon Dioxide BUN 48 H Creatinine 1.3 H Glucose Uric Acid 12.6 H Calcium 8.5 L Lactate Dehydrogenase 281 H Troponin T Total Protein 5.6 L Albumin 2.8 L Albumin/Globulin Ratio Procalcitonin 0.23 H Urine Appearance Urine Protein Urine Occult Blood Urine Nitrate Ur Leukocyte Esterase Urine RBC Urine WBC Urine Bacteria Hyaline Casts Urine Mucus 09/30/20 09/30/20 09/30/20 10:55 10:49 09:56 RBC Hgb Hct MPV Neut % (Auto) Lymph % (Auto) Lymph # (Auto) ABG Methemoglobin 0.3 L VBG Base Excess 8 H Carboxyhemoglobin 3.5 H Total Hemoglobin 10.3 L Carbon Dioxide BUN Creatinine Glucose Uric Acid Calcium Lactate Dehydrogenase Troponin T Total Protein Albumin Albumin/Globulin Ratio Procalcitonin 0.29 H Urine Appearance Cloudy A Urine Protein 30 A Urine Occult Blood >=1.0 A Urine Nitrate Pos A Ur Leukocyte Esterase 500 A Urine RBC 158 H Urine WBC 122 H Urine Bacteria Few A Hyaline Casts 3 H Urine Mucus Few A 09/30/20 09/30/20 09/30/20 09:56 09:56 09:56 RBC 3.69 L Hgb 10.7 L Hct 33.5 L MPV 10.9 H Neut % (Auto) 84.5 H Lymph % (Auto) 6.2 L Lymph # (Auto) 0.59 L ABG Methemoglobin VBG Base Excess Carboxyhemoglobin Total Hemoglobin Carbon Dioxide 32 H BUN 60 H Creatinine 1.7 H Glucose 137 H Uric Acid Calcium Lactate Dehydrogenase Troponin T 0.04 H* Total Protein Albumin Albumin/Globulin Ratio 0.9 L Procalcitonin Urine Appearance Urine Protein Urine Occult Blood Urine Nitrate Ur Leukocyte Esterase Urine RBC Urine WBC Urine Bacteria Hyaline Casts Urine Mucus Meds: Medications Acetaminophen (Acetaminophen 325 Mg Tablet) 650 mg PO Q6HP PRN PRN Reason: PAIN/FEVER > 101 Last Admin: 09/30/20 17:11 Dose: 650 mg Documented by: Albuterol/Ipratropium (Ipratropium/Albuterol 3 Ml Ampul.Neb) 3 ml NEB Q4HP PRN PRN Reason: Shortness Of Breath Dextrose (Dextrose 50% 50 Ml Vial) 0 ml IV UD PRN PRN Reason: Hypoglycemia Diagnostic Test (Pha) (Accu-Chek 1 Each Strip) 1 each FS ACHS CHANDRIKA Last Admin: 10/01/20 06:59 Dose: 1 each Documented by: Docusate Sodium (Docusate Sodium 100 Mg Capsule) 100 mg PO BID [facility] Last Admin: 09/30/20 21:03 Dose: Not Given Documented by: Enoxaparin Sodium (Enoxaparin 30 Mg/0.3 Ml Syringe) 30 mg SQ DAILY [facility] Glucose (Dextrose 31 Gm Oral.Susp) 15 gm PO PRN PRN PRN Reason: Hypoglycemia Potassium Chloride 40 meq/ (Dextrose) 520 mls @ 130 mls/hr IV UD PRN PRN Reason: Potassium < 3 Magnesium Sulfate (Magnesium Sulfate) 2 gm in 50 mls @ 50 mls/hr IV UD PRN PRN Reason: Magnesium </= 1.6 Ceftriaxone Sodium 2 gm/ (Dextrose) 50 mls @ 100 mls/hr IV DAILY [facility]; Protocol Azithromycin 500 mg/ Dextrose 250 mls @ 250 mls/hr IV DAILY@1100 [facility]; Protocol Stop: 10/02/20 11:59 Last Infusion: 09/30/20 16:27 Dose: Infused Documented by: Insulin Human Lispro (Insulin Lispro 1 Unit/0.01 Ml Unit) 0 unit SQ ACHS [facility]; Protocol Last Admin: 10/01/20 07:00 Dose: Not Given Documented by: Lactulose (Lactulose 20 Gm/30 Ml Oral.Rebeka) 20 gm PO DAILYP PRN PRN Reason: Constipation Methimazole (Methimazole 10 Mg Tablet) 5 mg PO DAILY [facility] Ondansetron HCl (Ondansetron 4 Mg/2 Ml Vial) 4 mg IV Q4HP PRN PRN Reason: Nausea And Vomiting Polyethylene Glycol (Polyethylene Glycol 3350 17 Gm Packet) 17 gm PO DAILYP PRN PRN Reason: Constipation Potassium Chloride (Potassium Chloride 20 Meq Tablet) 40 meq PO UD PRN PRN Reason: Potssium is 3-3.5 Potassium Chloride (Potassium Chloride 20 Meq Tablet) 40 meq PO UD PRN PRN Reason: Potassium < 3 Senna (Sennosides 1 Tablet) 2 tab PO DAILYP PRN PRN Reason: Constipation Sodium Chloride (0.9 % Sodium Chloride 10 Ml Syringe) 10 ml IV Q8 [facility] Last Admin: 10/01/20 05:13 Dose: 10 ml Documented by: Tramadol HCl (Tramadol 50 Mg Tablet) 50 mg PO Q8HP PRN; Protocol PRN Reason: Pain Last Admin: 09/30/20 23:55 Dose: 50 mg Documented by: ABG Interpretation ABG results: 09/30/20 10:55 ABG Methemoglobin 0.3 L VBG pH 7.53 VBG pCO2 37.5 VBG pO2 169.7 VBG HCO3 30.8 VBG Total CO2 31.9 VBG O2 Saturation 95.6 VBG Base Excess 8 H A/P Narrative A/P Narrative: A: *PNA, ?aspiration pna: -pt reports h/o food/drink going down "wrong pipe" -CURB=3, PCT elevated *complicated UTI: recent linton placed *Encephalopathy: 2/2 narcotics (morphine) superimposed on infection -responded to narcan *REGINA on CKD III: improved *Volume depletion: improved *Generalized weakness/deconditioning/recent fall: *COPD, end-stage(4-5L O2 @home): has been on hospice *DM: *HTN: *h/o diastolic CHF: *Anemia, chronic *Hypothyroidism: Was on methimazole 10 mg daily, recent labs with elevated TSH and low T4 P: -Rocephin/azithromycin, pending UC -hold morphine for now, prn tramadol -IVF -anemia w/u -Hold diuretics -Hold ARB for REGINA -Decrease methimazole to 5mg daily, down from 10mg daily, f/u TSH/T4 outpt -cont home IH's, O2 supp -d/c linton prior to d/c -ST eval -PT/OT -Case management for placement -ppx: Lovenox Status: DNR Time Spent With Patient Time: Total time spent is greater than 50% in coordination of care (as documented) at patient's floor/unit and/or counseling patient: QUALITY Stroke Symptom Onset Unknown: No VTE Deep Vein Thrombosis/Pulmonary Embolism Present on Admission: No
[2020-10-01] MEDS: DOCUSATE SODIUM 100 MG CAPSULE PO SCH ×2 (08:42→21:12)
[2020-10-01] MEDS: cefTRIAXone 2 GM in DEXTROSE 5% IN WATER 50 ML IV SCH (08:42)
[2020-10-01] MEDS: traMADol 50 MG TABLET PO PRN ×2 (08:57→16:19)
[2020-10-01] MEDS: ENOXAPARIN 30 MG/0.3 ML SYRINGE SQ SCH (08:58)
[2020-10-01] MEDS: AZITHROMYCIN 500 MG in DEXTROSE 5% IN WATER 250 ML IV SCH (10:34)
[2020-10-01] MEDS: METHIMAZOLE 10 MG TABLET PO SCH (10:39)
[2020-10-01 10:55] LABS: Ferritin 155.4 ng/mL (30.0-400.0)
--- NOTE | 2020-10-01 10:56 | Discharge Summary ---
Discharge Provider Provider Patient information: Note initiated : 10/01/20 at 10:54 am Service Date, if different from initiated Date: [] Patient: Doris Li a 84 y/o F admitted on 09/30/20 for hospice patient, possible PNA, less responsive. Chief Complaint: [] Date of admission: 09/30/20 14:35 Discharge date: 10/02/20 Primary care physician: GEORGIA Martinez Consults: 09/30/20 Consult to Physician [CONS] Stat Comment: Consulting Provider: Jonnie Gamboa Reason For Exam: Physician to Consult Discharge Meds Discharge Medications Home Medications Combivent Respimat 1 puff INHALATION Q4H PRN 09/30/20 [History Confirmed 09/30/20 Last Taken Unknown] Ocuvite with Lutein 1 tab PO QDAY 09/30/20 [History Confirmed 09/30/20 Last Taken Unknown] Opcon-A 1 drp OPHTHALMIC (EYE) QID PRN 09/30/20 [History Confirmed 09/30/20 Last Taken Unknown] acetaminophen 650 mg FL Q6H PRN 09/30/20 [History Confirmed 09/30/20 Last Taken Unknown] albuterol sulfate [Ventolin HFA] 2 puff INHALATION Q4H PRN 09/30/20 [History Confirmed 09/30/20 Last Taken Unknown] ascorbic acid (vitamin C) 500 mg PO QDAY 09/30/20 [History Confirmed 09/30/20 Last Taken Unknown] bisacodyl [Dulcolax (bisacodyl)] 5 mg PO BID 09/30/20 [History Confirmed 09/30/20 Last Taken Unknown] cholecalciferol (vitamin D3) [Vitamin D3] 50 mcg PO QDAY 09/30/20 [History Confirmed 09/30/20 Last Taken Unknown] clotrimazole 10 mg MUCOUS MEMBRANE TID 09/30/20 [History Confirmed 09/30/20 Last Taken Unknown] cod liver oil 1 cap PO QDAY 09/30/20 [History Confirmed 09/30/20 Last Taken Unknown] diclofenac sodium 1 - 4 g TOPICAL QID 09/30/20 [History Confirmed 09/30/20 Last Taken Unknown] docusate sodium 100 mg PO BID 09/30/20 [History Confirmed 09/30/20 Last Taken Unknown] fexofenadine 180 mg PO QDAY 09/30/20 [History Confirmed 09/30/20 Last Taken U nknown] furosemide 20 mg PO BID 09/30/20 [History Confirmed 09/30/20 Last Taken Unknown] guaifenesin [Mucinex] 600 mg PO BID PRN 09/30/20 [History Confirmed 09/30/20 Last Taken Unknown] hyoscyamine sulfate 0.125 mg PO QID 09/30/20 [History Confirmed 09/30/20 Last Taken Unknown] ipratropium-albuterol 3 ml INHALATION Q6H PRN 09/30/20 [History Confirmed 09/30/20 Last Taken Unknown] lorazepam 0.5 mg PO BID PRN 09/30/20 [History Confirmed 09/30/20 Last Taken Unknown] oxycodone 5 mg PO HS 09/30/20 [History Confirmed 09/30/20 Last Taken Unknown] polysaccharide iron complex [iFerex 150] 150 mg PO BID 09/30/20 [History Confirmed 09/30/20 Last Taken Unknown] potassium chloride 20 meq PO BID 09/30/20 [History Confirmed 09/30/20 Last Taken Unknown] prochlorperazine maleate 10 mg PO Q6H PRN 09/30/20 [History Confirmed 09/30/20 Last Taken Unknown] sennosides [senna] 8.6 mg PO BID 09/30/20 [History Confirmed 09/30/20 Last Taken Unknown] amoxicillin-pot clavulanate [Augmentin] 1 tab PO BID #6 tab 10/01/20 [Rx Last Taken Unknown] methimazole 5 mg PO QDAY #10 tab 10/01/20 [Rx Last Taken Unknown] COURSE Hospital Course Hospital course: History of present illness: Ms. Cristofer Richard is a 84 year old F Presents the ED per request of the hospice nurse for suspected oversedation from narcotics. Of note patient was admitted to [facility] earlier in the month for several days after a fall. Patient gets oral morphine on occasion. He is also recently started on Linton catheter after the fall. In the ED she responded quite well to Narcan. She did receive a chest x-ray which showed an infiltrate in right lower lobe and a urinalysis consistent with infection. She was started on IV antibiotics. Family rescinded hospice so she could be admitted. She is also found to have a fever in the ED. Patient is feeling better after the Narcan. She does report a history of either food or drink occasionally going down the wrong pipe. And cough being triggered by food or drink at times. She does have a chronic cough and feels cough is little bit worse the past couple days. Denies chest pain. She is on methimazole 10 mg daily for hyperthyroidism. She had labs done several days ago which showed elevated TSH and low T4. We will lower her methimazole 50%. She is also found to have a likely acute kidney injury on chronic kidney disease. 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 10/01 Patient feeling a little better. Renal function improved. Occasional cough. Unable to bring up phlegm from her throat. 10/02 Patient doing well. No overnight events. Renal function good. A: *PNA, ?aspiration pna: -pt reports h/o food/drink going down "wrong pipe" -CURB=3, PCT elevated *complicated UTI: recent linton placed *Encephalopathy: 2/2 narcotics (morphine) superimposed on infection -responded to narcan *REGINA on CKD III: improved *Volume depletion: improved *Generalized weakness/deconditioning/recent fall: *COPD, end-stage(4-5L O2 @home): has been on hospice *DM: *HTN: *h/o diastolic CHF: *Anemia, chronic *Hyperthyroidism: Was on methimazole 10 mg daily, recent labs with elevated TSH and low T4 Discharge diagnosis: Pneumonia complicated UTI encephalopathy acute kidney injury volume depleti Secondary discharge diagnosis: Generalized weakness deconditioning recent fall end-stage COPD diabetes hypertension history of diastolic heart failure chronic anemia hyperthyroidism Time Spent with Patient Time attestation: Total time spent providing and/or coordinating discharge services: Time spent: Greater than 30 minutes EXAM Constitutional Vitals: Temp Pulse Resp BP Pulse Ox 97.5 F 70 18 121/60 94 10/01/20 06:53 10/01/20 06:53 10/01/20 06:53 10/01/20 06:53 10/01/20 06:53 Discharge Data Data Completed and Pending Labs on day of discharge: Labs from last 24 hours 10/01/20 10/01/20 10/01/20 09:38 09:38 05:22 WBC RBC Hgb Hct MCV MCH MCHC RDW Plt Count MPV Neut % (Auto) Lymph % (Auto) Burnett % (Auto) Eos % (Auto) Baso % (Auto) Lymph # (Auto) Burnett # (Auto) Eos # (Auto) Baso # (Auto) Absolute Neutrophils ABG Methemoglobin VBG pH VBG pCO2 VBG pO2 VBG HCO3 VBG Total CO2 VBG O2 Saturation VBG Base Excess Carboxyhemoglobin Total Hemoglobin Sodium Potassium Chloride Carbon Dioxide Anion Gap BUN Creatinine GFR Calculation Glucose Hemoglobin A1c Estim Average Glucose Uric Acid Calcium Phosphorus Magnesium Iron 20 L TIBC 182 L Unsat Iron Binding 162 Transferrin % Sat 11 L Ferritin Pending Total Bilirubin Direct Bilirubin GGT AST ALT Alkaline Phosphatase Lactate Dehydrogenase Troponin T Total Protein Albumin Globulin Albumin/Globulin Ratio Triglycerides Vitamin B12 Pending Folate Pending Procalcitonin 0.23 H Urine Color Urine Appearance Urine pH Ur Specific [place] Urine Protein Urine Glucose (UA) Urine Ketones Urine Occult Blood Urine Nitrate Urine Bilirubin Urine Urobilinogen Ur Leukocyte Esterase Urine RBC Urine WBC Ur Squamous Epith Cells Ur Transition Epith Cell Urine Bacteria Hyaline Casts Urine Mucus Ur Culture Indicated? 10/01/20 10/01/20 09/30/20 05:22 05:22 10:55 WBC 9.9 RBC 3.10 L Hgb 8.9 L Hct 27.6 L MCV 89.0 MCH 28.7 MCHC 32.2 RDW 13.1 Plt Count 231 MPV 10.8 H Neut % (Auto) 77.2 Lymph % (Auto) 10.0 L Burnett % (Auto) 8.5 Eos % (Auto) 3.9 Baso % (Auto) 0.4 Lymph # (Auto) 0.99 L Burnett # (Auto) 0.84 Eos # (Auto) 0.39 Baso # (Auto) 0.04 Absolute Neutrophils 7.65 ABG Methemoglobin 0.3 L VBG pH 7.53 VBG pCO2 37.5 VBG pO2 169.7 VBG HCO3 30.8 VBG Total CO2 31.9 VBG O2 Saturation 95.6 VBG Base Excess 8 H Carboxyhemoglobin 3.5 H Total Hemoglobin 10.3 L Sodium 138 Potassium 3.4 Chloride 97 Carbon Dioxide 30 Anion Gap 11.0 BUN 48 H Creatinine 1.3 H GFR Calculation 38 Glucose 96 Hemoglobin A1c 5.6 Estim Average Glucose 114 Uric Acid 12.6 H Calcium 8.5 L Phosphorus 3.1 Magnesium 2.4 Iron TIBC Unsat Iron Binding Transferrin % Sat Ferritin Total Bilirubin 0.3 Direct Bilirubin < 0.2 GGT 16 AST 28 ALT 15 Alkaline Phosphatase 62 Lactate Dehydrogenase 281 H Troponin T Total Protein 5.6 L Albumin 2.8 L Globulin 2.8 Albumin/Globulin Ratio 1.0 Triglycerides 146 Vitamin B12 Folate Procalcitonin Urine Color Urine Appearance Urine pH Ur Specific [place] Urine Protein Urine Glucose (UA) Urine Ketones Urine Occult Blood Urine Nitrate Urine Bilirubin Urine Urobilinogen Ur Leukocyte Esterase Urine RBC Urine WBC Ur Squamous Epith Cells Ur Transition Epith Cell Urine Bacteria Hyaline Casts Urine Mucus Ur Culture Indicated? 09/30/20 09/30/20 09/30/20 10:49 09:56 09:56 WBC RBC Hgb Hct MCV MCH MCHC RDW Plt Count MPV Neut % (Auto) Lymph % (Auto) Burnett % (Auto) Eos % (Auto) Baso % (Auto) Lymph # (Auto) Burnett # (Auto) Eos # (Auto) Baso # (Auto) Absolute Neutrophils ABG Methemoglobin VBG pH VBG pCO2 VBG pO2 VBG HCO3 VBG Total CO2 VBG O2 Saturation VBG Base Excess Carboxyhemoglobin Total Hemoglobin Sodium Potassium Chloride Carbon Dioxide Anion Gap BUN Creatinine GFR Calculation Glucose Hemoglobin A1c Estim Average Glucose Uric Acid Calcium Phosphorus Magnesium Iron TIBC Unsat Iron Binding Transferrin % Sat Ferritin Total Bilirubin Direct Bilirubin GGT AST ALT Alkaline Phosphatase Lactate Dehydrogenase Troponin T 0.04 H* Total Protein Albumin Globulin Albumin/Globulin Ratio Triglycerides Vitamin B12 Folate Procalcitonin 0.29 H Urine Color Yellow Urine Appearance Cloudy A Urine pH 5.0 Ur Specific [place] 1.015 Urine Protein 30 A Urine Glucose (UA) Negative Urine Ketones Negative Urine Occult Blood >=1.0 A Urine Nitrate Pos A Urine Bilirubin Negative Urine Urobilinogen Negative Ur Leukocyte Esterase 500 A Urine RBC 158 H Urine WBC 122 H Ur Squamous Epith Cells 1 Ur Transition Epith Cell < 1 Urine Bacteria Few A Hyaline Casts 3 H Urine Mucus Few A Ur Culture Indicated? yes 09/30/20 09:56 WBC RBC Hgb Hct MCV MCH MCHC RDW Plt Count MPV Neut % (Auto) Lymph % (Auto) Burnett % (Auto) Eos % (Auto) Baso % (Auto) Lymph # (Auto) Burnett # (Auto) Eos # (Auto) Baso # (Auto) Absolute Neutrophils ABG Methemoglobin VBG pH VBG pCO2 VBG pO2 VBG HCO3 VBG Total CO2 VBG O2 Saturation VBG Base Excess Carboxyhemoglobin Total Hemoglobin Sodium 140 Potassium 4.0 Chloride 96 Carbon Dioxide 32 H Anion Gap 12.0 BUN 60 H Creatinine 1.7 H GFR Calculation 27 Glucose 137 H Hemoglobin A1c Estim Average Glucose Uric Acid Calcium 9.4 Phosphorus Magnesium Iron TIBC Unsat Iron Binding Transferrin % Sat Ferritin Total Bilirubin 0.3 Direct Bilirubin GGT AST 19 ALT 10 Alkaline Phosphatase 64 Lactate Dehydrogenase Troponin T Total Protein 6.8 Albumin 3.3 Globulin 3.5 Albumin/Globulin Ratio 0.9 L Triglycerides Vitamin B12 Folate Procalcitonin Urine Color Urine Appearance Urine pH Ur Specific [place] Urine Protein Urine Glucose (UA) Urine Ketones Urine Occult Blood Urine Nitrate Urine Bilirubin Urine Urobilinogen Ur Leukocyte Esterase Urine RBC Urine WBC Ur Squamous Epith Cells Ur Transition Epith Cell Urine Bacteria Hyaline Casts Urine Mucus Ur Culture Indicated? Discharge Plan Patient/Caregiver Discharge Instructions Activity: increase activity as tolerated Diet: Consistent Carbohydrate Activity Restrictions/Additional Instructions: f/u wtih PCP for thyroid function test. Methimazole decreased to 5mg daily d/t recent labs on 09/28. Follow-up with hospice Home medications clarify: nurse clarifying if was taking prednisone. I believe it was an old med, a short burst per 09/10/20 [facility] Hospice note for temporal arteritis. Prescriptions: New amoxicillin-pot clavulanate [Augmentin] 875-125 mg tablet 1 tab PO BID Qty: 6 RF: 0 Continued clotrimazole 10 mg Landry 10 mg MUCOUS MEMBRANE TID RF: 0 sennosides [senna] 8.6 mg Tablet 8.6 mg PO BID RF: 0 potassium chloride 10 mEq Capsule, Extended Release 20 meq PO BID RF: 0 acetaminophen 650 mg Suppository 650 mg FL Q6H PRN (Reason: Fever) RF: 0 ipratropium-albuterol 0.5 mg-3 mg(2.5 mg base)/3 mL Solution For Nebulization 3 ml INHALATION Q6H PRN (Reason: Shortness Of Breath) RF: 0 cod liver oil Capsule 1 cap PO QDAY RF: 0 polysaccharide iron complex [iFerex 150] 150 mg iron Capsule 150 mg PO BID RF: 0 fexofenadine 180 mg Tablet 180 mg PO QDAY RF: 0 prochlorperazine maleate 10 mg Tablet 10 mg PO Q6H PRN (Reason: Nausea) RF: 0 lorazepam 0.5 mg Tablet 0.5 mg PO BID PRN (Reason: Dyspnea) RF: 0 ascorbic acid (vitamin C) 500 mg Tablet 500 mg PO QDAY RF: 0 hyoscyamine sulfate 0.125 mg Tablet 0.125 mg PO QID RF: 0 docusate sodium 100 mg Capsule 100 mg PO BID RF: 0 bisacodyl [Dulcolax (bisacodyl)] 5 mg Tablet,Delayed Release (Dr/Ec) 5 mg PO BID RF: 0 furosemide 20 mg Tablet 20 mg PO BID RF: 0 albuterol sulfate [Ventolin HFA] 90 mcg/actuation Hfa Aerosol Inhaler 2 puff INHALATION Q4H PRN (Reason: Shortness Of Breath) RF: 0 oxycodone 5 mg Tablet 5 mg PO HS RF: 0 Opcon-A 0.08043-1.315 % Drops 1 drp OPHTHALMIC (EYE) QID PRN (Reason: Allergy Symptoms) RF: 0 Ocuvite with Lutein 1,000 unit-200 mg-60 unit-2 mg Tablet 1 tab PO QDAY RF: 0 diclofenac sodium 1 % Gel 1 - 4 g TOPICAL QID RF: 0 cholecalciferol (vitamin D3) [Vitamin D3] 50 mcg (2,000 unit) Capsule 50 mcg PO QDAY RF: 0 guaifenesin [Mucinex] 600 mg Tablet Extended Release 12hr 600 mg PO BID PRN (Reason: Secretions) RF: 0 Combivent Respimat 20-100 mcg/actuation Mist 1 puff INHALATION Q4H PRN (Reason: Shortness Of Breath) RF: 0 Changed methimazole 10 mg Tablet 5 mg PO QDAY Qty: 10 RF: 0 Discontinued losartan 50 mg Tablet 50 mg PO QDAY RF: 0 prednisone 20 mg Tablet 40 mg PO BID RF: 0 spironolactone 25 mg Tablet 25 mg PO BID RF: 0 ibuprofen [Advil] 200 mg Tablet 200 mg PO Q4H PRN (Reason: Pain) RF: 0 hydrochlorothiazide 25 mg Tablet 25 mg PO BID RF: 0 Follow Up Plan Follow up with: Beryl Joseph ARNP [Primary Care Provider] - Patient Disposition: Xfer Assisted Living Facility Prognosis: Undetermined Overall status at discharge: patient is progressing back to baseline Discharge Orders: Discharge Order (Routine); Ordered 10/02/20 [facility] Thromb[facility]/Pulmonary Embolism Present on Admission: No
[2020-10-01 11:02] LABS: Folate 6.8 ng/mL (4.2-19.9)
[2020-10-01] MEDS: IRON POLYSACCHARIDE COMPLEX 150 MG CAPSULE PO SCH (11:15)
[2020-10-02] MEDS: traMADol 50 MG TABLET PO PRN (01:48)
[2020-10-02] MEDS: 0.9 % SODIUM CHLORIDE 10 ML SYRINGE IV SCH ×2 (05:29→14:53)
[2020-10-02 07:39] LABS: Basophils # (Auto) 0.04 K/mcL (0.00-0.20); Basophils % (Auto) 0.5 % (0.0-2.0); Eosinophils # (Auto) 0.42 K/mcL (0.00-0.70); Hemoglobin 8.9 g/dL (12.0-15.0); Lymphocytes # (Auto) 0.84 K/mcL (1.50-4.80); Lymphocytes % (Auto) 10.1 % (15.0-49.0); Mean Cell Volume 90.3 fL (80.0-100.0); Mean Corpuscular HGB Conc 31.8 g/dL (31.0-36.0); Mean Platelet Volume 10.7 fL (7.4-10.4); Monocytes # (Auto) 0.65 K/mcL (0.10-0.90); Monocytes % (Auto) 7.8 % (1.0-12.0); Neutrophils % (Auto) 76.6 % (38.0-78.0); Platelet Count 256 K/mcL (140-440); WBC 8.4 K/mcL (4.5-11.0)
[2020-10-02 08:12] LABS: Blood Urea Nitrogen 36 mg/dL (8-23); Calcium 8.6 mg/dL (8.6-10.4); Carbon Dioxide 28 mmol/L (22-30); Chloride 100 mmol/L (96-108); Glomerular Filtration Rate 52; Glucose 87 mg/dL (70-105)
[2020-10-02] MEDS: INSULIN LISPRO 1 UNIT/0.01 ML UNIT SQ SCH ×3 (08:37→19:31)
[2020-10-02] MEDS: ACETAMINOPHEN 325 MG TABLET PO PRN (09:45)
[2020-10-02] MEDS: IRON POLYSACCHARIDE COMPLEX 150 MG CAPSULE PO SCH (09:45)
[2020-10-02] MEDS: DOCUSATE SODIUM 100 MG CAPSULE PO SCH (09:45)
[2020-10-02] MEDS: cefTRIAXone 2 GM in DEXTROSE 5% IN WATER 50 ML IV SCH (09:46)
[2020-10-02] MEDS: ENOXAPARIN 30 MG/0.3 ML SYRINGE SQ SCH (09:46)
[2020-10-02] MEDS: METHIMAZOLE 10 MG TABLET PO SCH (09:47)
[2020-10-02] MEDS: AZITHROMYCIN 500 MG in DEXTROSE 5% IN WATER 250 ML IV SCH (12:05)
== END 2020-10-02 16:17 | DRG 193 ==
LOC: ED 08:39 → MEDSUR 14:35
PROVIDERS: ADMIT Internal Medicine; ATTEND Internal Medicine